=== PATIENT | female | born 1965 | race Caucasian/White ===

== ENCOUNTER 2020-06-12 16:51 | Outpatient (CLI) | payer OTHER, SELFPAY ==
--- NOTE | ~2020-06-12 | MM_ITS ---
EXAMINATION: MM screening [facility] BI w toma HISTORY: Screening mammogram TECHNIQUE: Craniocaudal and mediolateral oblique 3-D tomosynthesis images were obtained and synthetic 2-D images were generated. Bilateral rotated lateral CC views. .CAD analysis was submitted and inter preted. COMPARISON: 05/18/2019, 04/13/2018 bilateral digital screening mammogram examinations BREAST PARENCHYMAL COMPOSITION: The breasts are heterogeneously dense, which may obscure small masses . FINDINGS: Scattered bilateral benign calcifications and stable mild fibroglandular asymmetry. There i s no evidence of suspicious mass, calcification, or architectural distortion to suggest malignancy in either breast. There has been no suspicious interval change. IMPRESSION: 1. No mammographic evidence of malignancy. 2. Recommend routine screening mammography in one year. BI-RADS Category 2: Benign finding(s). Reviewed, dictated and finalized at location A.
== END 2020-06-12 16:52 | disposition home or self-care (01) ==
LOC: ANHIMG 16:54
PROVIDERS: PCP Student in an Organized Health Care Education/Training Program; Visit Provider Student in an Organized Health Care Education/Training Program
DX: Z12.31 Encounter for screening mammogram for malignant neoplasm of breast (principal)
CPT/HCPCS: 77063; 77067

== ENCOUNTER 2021-08-25 16:13 | Outpatient (CLI) | payer OTHER, SELFPAY ==
--- NOTE | ~2021-08-25 | MM_ITS ---
EXAMINATION: MM screening [facility] BI w toma HISTORY: Screening mammogram TECHNIQUE: Craniocaudal and mediolateral oblique 3-D tomosynthesis images were obtained and synthetic 2-D images were generated. CAD analysis was submitted and interpreted. COMPARISON: 06/12/2020, 05/18/2019, 04/13/2018 BREAST PARENCHYMAL COMPOSITION: The breasts are heterogeneously dense, which may obscure small masses . FINDINGS: There is no evidence of suspicious mass, calcification, or architectural distortion to sugg est malignancy in either breast. There has been no suspicious interval change. IMPRESSION: 1. No mammographic evidence of malignancy. 2. Recommend routine screening mammography in one year. BI-RADS Category 1: Negative Reviewed, dictated and finalized at location A. ER OPERATOR
== END 2021-08-25 16:14 | disposition home or self-care (01) ==
LOC: ANHIMG 16:14
PROVIDERS: PCP Physician Assistant; Visit Provider Student in an Organized Health Care Education/Training Program
DX: Z12.31 Encounter for screening mammogram for malignant neoplasm of breast (principal)
CPT/HCPCS: 77063; 77067

== ENCOUNTER → 2022-10-12 15:27 | Outpatient (CLI) | payer OTHER, SELFPAY ==
--- NOTE | ~2022-10-12 | MM_ITS ---
EXAMINATION: MM screening [facility] BI w toma HISTORY: Screening mammogram TECHNIQUE: Craniocaudal and mediolateral oblique 3-D tomosynthesis images were obtained and synthetic 2-D images were generated. CAD analysis was submitted and interpreted. COMPARISON: 08/2021, 06/12/2020, 05/18/2019 bilateral screening mammogram examinations BREAST PARENCHYMAL COMPOSITION: There are FINDINGS: There is no evidence of suspicious mass, calcification, or architectural distortion to sugg est malignancy in either breast. There has been no suspicious interval change. IMPRESSION: 1. No mammographic evidence of malignancy. 2. Recommend routine screening mammography in one year. BI-RADS Category 1: Negative Reviewed, dictated and finalized at location A. UNT GENERAL MANAGER
== END ==
PROVIDERS: PCP Physician Assistant; Visit Provider Student in an Organized Health Care Education/Training Program
DX: Z12.31 Encounter for screening mammogram for malignant neoplasm of breast (principal)
CPT/HCPCS: 77063; 77067

== ENCOUNTER 2023-02-10 10:54 | Outpatient (CLI) | payer OTHER, SELFPAY ==
--- NOTE | 2023-02-10 | ECG_ITS ---
Measurements Intervals [place] Rate: 68 P: 63 WI: 173 QRS: -3 QRSD: 99 T: 34 QT: 374 QTc: 400 Interpretive Statements SINUS RHYTHM NO PREVIOUS ECG AVAILABLE FOR COMPARISON Electronically Signed On 02-10-2023 13:33:37 CDT by Padmini Finney M.D.
== END 2023-02-10 10:55 | disposition home or self-care (01) ==
PROVIDERS: PCP Physician Assistant; Visit Provider Physician Assistant
DX: Z01.818 Encounter for other preprocedural examination (principal)
CPT/HCPCS: 93005

== ENCOUNTER → 2023-09-01 08:52 | Outpatient (CLI) | payer OTHER, SELFPAY ==
--- NOTE | ~2023-09-01 | US_ITS ---
Limited Abdominal Sonogram: Real-time sonographic imaging of the right upper quadrant was performed. Clinical History: Abnormal serum enzyme levels Findings: The liver appears normal with no evidence of mass lesion or bile duct dilatation. Main por erika vein demonstrates normal direction of flow. The gallbladder is absent, compatible prior cholecyst ectomy. The common bile duct measures 4 mm. The visualized pancreas, aorta, and IVC are unremarkable . There is a probable fat-containing focal ventral hernia. Impression: Probable fat-containing ventral hernia. Status post cholecystectomy. Reviewed, dictated and finalized at location . 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 Status post cholecystectomy.
== END ==
PROVIDERS: Visit Provider Physician Assistant
DX: R74.8 Abnormal levels of other serum enzymes (principal); Z90.49 Acquired absence of other specified parts of digestive tract; K43.9 Ventral hernia without obstruction or gangrene
CPT/HCPCS: 76705

== ENCOUNTER 2023-09-09 11:14 | Emergency (ER) | payer OTHER, SELFPAY ==
[2023-09-09 11:33] VITALS: BP 116/84; PULSE 63; RESP 16; TEMP 36.3; O2SAT 100
--- NOTE | 2023-09-09 11:34 | ED.GENADULT ---
HPI - General Adult General Chief complaint: Abdominal Pain Stated complaint: ABD PAIN/KNOT IN STOMACH Time Seen by Provider: 09/09/23 11:35 Source: patient, RN notes reviewed and old records reviewed Mode of arrival: ambulatory Limitations: no limitations History of Present Illness HPI narrative: 58-year-old female presents to the [facility] with abdominal pain and a knot in her stomach Had gastric sleeve in February 2023, ultrasound done last week. Ultrasound showed a Probable fat-containing ventral hernia. Gastric surgery was done at [facility]. Patient reports that the pain is got worse over the last 3 days. States that she tried calling her surgeon's office but they do not see patients on Fridays. States she tried calling her primary care provider's office and she is no longer there. Onset (ago): day(s) (3) Related Data Home Medications Medication Instructions Recorded Confirmed bupropion HCl 300 mg 24 hr tablet, tablet PO 11/09/22 extended release levothyroxine 100 mcg tablet 100 mcg PO DAILY 11/09/22 09/09/23 (Synthroid) sertraline 100 mg tablet 100 mg PO DAILY 11/09/22 09/09/23 Allergies Allergy/AdvReac Type Severity Reaction Status Date / Time No Known Allergies Allergy Verified 09/09/23 11:31 Review of Systems Review of Systems: All systems reviewed & are unremarkable except as noted in HPI and below Constitutional: Constitutional: Reports no additional constitutional complaints Eyes: Eyes: Reports no additional eye complaints ENT: Reports system reviewed and no additional complaints, except as documented Cardiovascular: Cardiovascular: Reports no additional cardiovascular complaints, Denies chest pain and Denies dyspnea Respiratory: Respiratory: Reports no additional respiratory complaints, Denies chest congestion, Denies cough and Denies dyspnea Gastrointestinal: Gastrointestinal: Reports as per HPI, Reports abdominal pain, Reports GI cramping, Denies nausea, Denies vomiting and Reports other (Hernia) Musculoskeletal: Musculoskeletal: Reports no additional musculoskeletal complaints Integumentary/Breasts: Skin/Breast: Reports system reviewed and no additional complaints, except as docu Neurologic: Reports system reviewed and no additional complaints, except as documented Psychiatric: Psychiatric: Reports no additional psychiatric complaints Allergic/Immunologic: Allergic/Immunologic: Reports no additional allergic/immunologic complaints PMFSH Past Medical History Medical History (Updated 09/09/23 @ 11:51 by Yudy Almonte APRN) Anxiety Depression GERD (gastroesophageal reflux disease) Hyperlipidemia Hypothyroid Surgical History Surgical History (Updated 09/09/23 @ 11:48 by Yudy Almonte APRN) H/O gastric sleeve 02/2023 H/O: hysterectomy History of knee replacement Hx of cholecystectomy Hx of tonsillectomy Family History Family History Grandparent Family history of lung cancer Diabetes mellitus Mother Breast cancer Other Family history of alcoholism Family history of arthritis Family history of gout Social History Social History Smoking status: Never smoker Alcohol intake: current Substance use: never Living arrangements: with family Occupation/Education: occupation Gender identity (if verbalized by the patient): Female Sexual Orientation (if Verbalized by the Patient): Straight or Heterosexual Comments At the time of my signature, I reviewed and agree with the nursing past medical, surgical, social, and family history. There is no relevant family history pertinent to the patient complaint. Exam Const: General: cooperative, healthy appearing, comfortable, no acute distress, well developed, alert and well nourished Nutritional Appearance: well nourished Orientation/consciousness: patient oriented x3 Limitations: no limitations RAVEN
== END 2023-09-09 11:47 | disposition short-term general hospital (02) ==
PROVIDERS: Emergency Provider Nurse Practitioner; PCP Physician Assistant
DX: R10.9 Unspecified abdominal pain (principal); K43.9 Ventral hernia without obstruction or gangrene; Z98.84 Bariatric surgery status; K21.9 Gastro-esophageal reflux disease without esophagitis; E78.5 Hyperlipidemia, unspecified; E03.9 Hypothyroidism, unspecified; F41.9 Anxiety disorder, unspecified; F32.A Depression, unspecified
CPT/HCPCS: 99212; G0463

== ENCOUNTER 2023-10-27 11:40 | Outpatient (CLI) | payer OTHER, SELFPAY ==
--- NOTE | ~2023-10-27 | MR_ITS ---
EXAMINATION: MR abdomen wo/w con DATE: 10/27/2023 12:58 INDICATION: Liver disease TECHNIQUE: Magnetic resonance imaging (MRI) of the abdomen was performed without and with 13 mL Multi pernell intravenous contrast. Sequences included coronal T2-weighted SS-FSE, coronal and axial FS 2D-F IESTA, axial STIR FSE, axial T2-weighted SS-FSE, axial T2-weighted FS SS-FSE, axial diffusion-weighte d SE, axial dual-echo T1-weighted FSPGR, and axial and coronal T1-weighted LAVA. Postcontrast axial T 1-weighted LAVA images were obtained in a time course. Postcontrast coronal T1-weighted LAVA images w ere obtained. COMPARISON: None. FINDINGS: Heart size is normal. No pericardial or pleural effusion. The gallbladder is not visualized and there are small foci of susceptibility artifact at the nevin hepatis likely related to cholecystectomy cli ps. Liver is normal with no parenchymal lesions or intrahepatic biliary ductal dilation. Common bile duct measures up to 5 mm in maximal diameter which is normal. Spleen, pancreas, bilateral adrenal gla nds and left kidney are normal. A couple T2 hyperintense nonenhancing cysts at the periphery of the r ight kidney the largest measuring 8mm. Visualized portion of bowels are unremarkable. No pathological ly enlarged abdominal or upper pelvic lymphadenopathy. Mild thoracolumbar dextrocurvature with severe disc height loss with fibrofatty degenerative endplate changes on the right at L3-L4. Otherwise mode rate thoracic and lumbar spondylosis. Postoperative change along the midline of the supraumbilical an terior abdominal wall. There is an underlying 4.3 x 1.6 x 3.6 similar fluid collection underlying the surgical scar which could represent a postoperative hematoma, seroma or abscess in the appropriate c linical setting. IMPRESSION: 1. Status post cholecystectomy. Normal liver with no abnormal intra or extra hepatic biliary ductal d ilation. 2. 4.3 x 3.6 x 1.6 cm loculated fluid collection deep to a midline upper abdominal surgical scar whic h could represent a postoperative hematoma/seroma or abscess in the appropriate clinical setting. Reviewed, dictated and finalized at location A. 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 Status post cholecystectomy. Normal liver with no abnormal intra or extra he patic biliary ductal dilation. 2. 4.3 x 3.6 x 1.6 cm loculated fluid collection deep to a midline upper abdomi nal surgical scar which could represent a postoperative hematoma/seroma or absc ess in the appropriate clinical setting.
== END 2023-10-27 11:41 ==
PROVIDERS: PCP Physician Assistant; Visit Provider Physician Assistant
DX: K76.9 Liver disease, unspecified (principal); Z90.49 Acquired absence of other specified parts of digestive tract
CPT/HCPCS: 74183; A9577

== ENCOUNTER 2023-11-01 16:03 | Outpatient (CLI) | payer OTHER, SELFPAY ==
--- NOTE | ~2023-11-01 | MM_ITS ---
EXAMINATION: MM screening [facility] BI w toma HISTORY: Screening mammogram TECHNIQUE: Craniocaudal and mediolateral oblique 3-D tomosynthesis images were obtained and synthetic 2-D images were generated. CAD analysis was submitted and interpreted. COMPARISON: July 12, 2023, August 25, 2021 bilateral screening mammogram examinations BREAST PARENCHYMAL COMPOSITION: The breasts are heterogeneously dense, which may obscure small masses . FINDINGS: There is no evidence of suspicious mass, calcification, or architectural distortion to sugg est malignancy in either breast. There has been no suspicious interval change. IMPRESSION: 1. No mammographic evidence of malignancy. 2. Recommend routine screening mammography in one year. BI-RADS Category 1: Negative Reviewed, dictated and finalized at location A.
== END 2023-11-01 16:04 ==
LOC: MICIMG 16:05
PROVIDERS: PCP Student in an Organized Health Care Education/Training Program; Visit Provider Student in an Organized Health Care Education/Training Program
DX: Z12.31 Encounter for screening mammogram for malignant neoplasm of breast (principal)
CPT/HCPCS: 77063; 77067

== ENCOUNTER 2024-03-20 09:29 | Day surgery (SDC) | payer OTHER, SELFPAY ==
[2024-02-17 11:57] VITALS: BMI 28.0
[2024-03-07 13:39] VITALS: BMI 27.5
--- NOTE | 2024-03-19 19:40 | PM.HPGS ---
History of Present Illness History of Present Illness Consent: Risks, benefits, and alternatives have been discussed and questions answered. Patient agrees to proceed with procedure. Chief complaint: Neoplasm screening Narrative: Shannan Mcmanus is a 58 year old female who is referred for colon cancer screening. Review of Systems Review of Systems: All systems reviewed & are unremarkable except as noted in HPI and below PMFSH Past Medical History Medical History Anxiety Depression GERD (gastroesophageal reflux disease) Hyperlipidemia Hypothyroid Surgical History Surgical History H/O gastric sleeve 02/2023 H/O: hysterectomy History of knee replacement Hx of cholecystectomy Hx of tonsillectomy Family History Family History Grandparent Family history of lung cancer Diabetes mellitus Mother Breast cancer Other Family history of alcoholism Family history of arthritis Family history of gout Social History Social History Smoking status: Never smoker Alcohol intake: current Drinks per week: 6 Alcohol use details: wine Substance use: never Substance use type: does not use Do You Feel Safe in your Home?: Yes Lack of Transportation: No Lack of Food: Never True Current Housing: I Have Housing Concerned About Future Housing: No Difficulty Paying Gas/Electric Bills: No Difficulty Paying for Meds: No Currently Unemployed: No Education: Master's Degree or Higher Difficulty w/ Childcare or Family Care: No Living arrangements: with family Occupation/Education: occupation Gender identity (if verbalized by the patient): Female Sexual Orientation (if Verbalized by the Patient): Straight or Heterosexual Spiritual care concerns: No Meds Home Medications and Allergies Home Medications Medication Instructions Recorded Confirmed Type levothyroxine 100 mcg tablet 100 mcg PO DAILY 11/09/22 03/20/24 History (Synthroid) estradiol 0.01% (0.1 mg/gram) 1 g vaginal 3XW #42.5 grams 11/23/23 03/07/24 Rx vaginal cream calcium 500 mg tablet 500 mg PO DAILY 03/07/24 03/20/24 History mecobalamin (vitamin B12) 5,000 5,000 mcg PO DAILY 03/07/24 03/20/24 History mcg chewable tablet multivitamin with minerals-folic 1 tablet PO DAILY 03/07/24 03/20/24 History acid 0.4 mg tablet Allergies Allergy/AdvReac Type Severity Reaction Status Date / Time No Known Allergies Allergy Verified 03/20/24 10:42 Exam Resp: Auscultation: clear to auscultation bilaterally Cardio: Rate: regular rate Rhythm: regular rhythm GI: GI Palp: Yes Soft to palpation and No Tenderness to palpation present (GI) Assessment and Plan Assessment and plan (1) Colon cancer screening: Code(s): Z12.11 - Encounter for screening for malignant neoplasm of colon Status: Acute Assessment and Plan: Colonoscopy with possible biopsy or polypectomy or cautery or injection of substances.
[2024-03-20] MEDS: LACTATED RINGERS 1,000 ML 150 ML IV CONT (11:01)
[2024-03-20 11:02] VITALS: BP 108/79; PULSE 62; RESP 18; TEMP 36.7; O2SAT 100; BMI 27.5
--- NOTE | 2024-03-20 11:06 | WPDANESEPPF ---
Anes - Initial Pre Proc Eval Procedure: Operation Date: 03/20/24 12:00 Proposed Procedures p Screening Colonoscopy - Farooq Castañeda MD Date/Time: 03/20/24 11:06 Surgeon: Farooq Castañeda MD Pre Op Diagnosis: Neoplasm screening Patient Data Age: 58 Gender: F Height: 1.6 m Weight: 70.5 kg Last Vital Signs Temp 36.7 C 03/20/24 11:02 Pulse 62 03/20/24 11:02 Resp 18 03/20/24 11:02 BP 108/79 03/20/24 11:02 Pulse Ox 100 03/20/24 11:02 O2 Del Method Room Air 03/20/24 11:02 Allergies Allergy/AdvReac Type Severity Reaction Status Date / Time No Known Allergies Allergy Verified 03/20/24 10:42 Home Medications Medication Instructions Recorded Confirmed Type levothyroxine 100 mcg tablet 100 mcg PO DAILY 11/09/22 03/20/24 History (Synthroid) estradiol 0.01% (0.1 mg/gram) 1 g vaginal 3XW #42.5 grams 11/23/23 03/07/24 Rx vaginal cream calcium 500 mg tablet 500 mg PO DAILY 03/07/24 03/20/24 History mecobalamin (vitamin B12) 5,000 5,000 mcg PO DAILY 03/07/24 03/20/24 History mcg chewable tablet multivitamin with minerals-folic 1 tablet PO DAILY 03/07/24 03/20/24 History acid 0.4 mg tablet Patient hx anesthesia problems: none Family hx anesthesia problems: none Results Review: All pre-operative results and documents have been reviewed as part of the pre-operative evaluation. [facility] Past Medical History Medical History Anxiety Depression GERD (gastroesophageal reflux disease) Hyperlipidemia Hypothyroid Surgical History Surgical History H/O gastric sleeve 02/2023 H/O: hysterectomy History of knee replacement Hx of cholecystectomy Hx of tonsillectomy Family History Family History Grandparent Family history of lung cancer Diabetes mellitus Mother Breast cancer Other Family history of alcoholism Family history of arthritis Family history of gout Social History Social History Smoking status: Never smoker Alcohol intake: current Drinks per week: 6 Alcohol use details: wine Substance use: never Substance use type: does not use Do You Feel Safe in your Home?: Yes Lack of Transportation: No Lack of Food: Never True Current Housing: I Have Housing Concerned About Future Housing: No Difficulty Paying Gas/Electric Bills: No Difficulty Paying for Meds: No Currently Unemployed: No Education: Master's Degree or Higher Difficulty w/ Childcare or Family Care: No Living arrangements: with family Occupation/Education: occupation Gender identity (if verbalized by the patient): Female Sexual Orientation (if Verbalized by the Patient): Straight or Heterosexual Spiritual care concerns: No Anes - Eval Final PreProcedure Day of Procedure 03/20/24 11:06 Patient weight: overweight Heart: regular rate and rhythm Lungs: clear to auscultation Airway: Mallampati scale class II Neurological: alert and oriented Last oral intake: >/= 8 hours ASA classification: II Emergent: no Anesthetic plan: proceed Anesthesia type and monitoring: general GIVS and standard monitoring Results Review: All pre-operative results and documents have been reviewed as part of the pre-operative evaluation. Informed Consent: The patient's anesthetic plan and its attendant risks and benefits were discussed with the patient/family/POA. Questions were solicited and answers provided to the satisfaction of the patient/family/POA.
[2024-03-20 11:45] VITALS: BP 108/79; PULSE 62; RESP 18; O2SAT 100
[2024-03-20 11:55] VITALS: BP 91/63; PULSE 62; RESP 18; O2SAT 100
--- NOTE | 2024-03-20 12:02 | WPDANESPN ---
Anes - Prog Note Post-Op Date/Time: 03/20/24 12:02 Cardiovascular status: normal Respiratory status: normal Airway patency: baseline Mental status: baseline Post-Op hydration status: normal Vital Signs: Last Vital Signs Temp 36.7 C 03/20/24 11:02 Pulse 62 03/20/24 11:55 Resp 18 03/20/24 11:55 BP 91/63 L 03/20/24 11:55 Pulse Ox 100 03/20/24 11:55 O2 Del Method Room Air 03/20/24 11:55 Pain Score (VAS): 0/10 I/O: Intake & Output 03/19/24 03/20/24 03/20/24 23:59 07:59 15:59 Intake Total 400 Balance 400 Patient Feedback: Patient satisfied with anesthetic care.
[2024-03-20 12:05] VITALS: BP 121/71; PULSE 68; RESP 20; O2SAT 100
== END 2024-03-20 12:20 | disposition home or self-care (01) ==
PROVIDERS: PCP Physician Assistant; Visit Provider Internal Medicine Gastroenterology
PROC: 0DJD8ZZ Inspection of Lower Intestinal Tract, Via Natural or Artificial Opening Endoscopic (ICD-10-PCS; CPT 45378; principal; 2024-03-20 12:00)
DX: Z12.11 Encounter for screening for malignant neoplasm of colon (principal)
CPT/HCPCS: 45378

== ENCOUNTER 2024-04-19 08:38 | Outpatient (CLI) | payer OTHER, SELFPAY ==
--- NOTE | 2024-05-15 10:29 | WPDHOMESLEEP ---
Sleep Study - Home Unattended Date of Study: 04/19/24 Ordering Provider: Tomeka Rabago, PAJose L Interpreting Provider: Tonja Briceño, Home Sleep Study Type: Watch PAT Height: 1.6 m Weight: 70.307 kg Body Mass Index: 27.4 Neck Circumference (inches): 13 Calvin: 5 Reason for Sleep Study Re-evaluation of BRAYAN after significant weight loss Sleep History The patient is a 58-year-old female with previously diagnosed sleep apnea that had a home sleep test ordered by her primary care for re-evaluation of sleep apnea after significant weight loss. The patient does admit to having difficulty falling asleep. She denies snoring. She denies having witnessed apneas during the night. She denies having choking or gasping spells during the night. She denies having trouble breathing on her back. She denies waking up with headaches that she did not go to bed with. She does have a dry mouth or throat in the morning. She denies nocturnal heartburn. She denies nocturia. She denies clenching her grinding her teeth. She denies kicking or jerking her legs excessively. She denies having trouble remaining asleep. She denies having difficulty returning to sleep. She denies waking up early without an alarm. She denies taking any hypnotics her sedatives. She does have anxiety about sleep. She does admit to feeling tired in the morning. She does admit to on refreshing sleep. She denies having the urge to fall asleep during the day. She denies feeling drowsy while driving. She goes to bed at 10:30 p.m. on work days and at 11:30 p.m. on her days off. It takes her 30 minutes to fall asleep. She sleeps 6 hours 15 minutes on work days and 8 hours on her off days. She does not take any planned naps. She states that her sleep is restorative on her days off. She consumes 1-2 cups of caffeinated beverage per day. She consumes 1 glass of an alcoholic beverage 3-4 nights per week. She exercises 1-2 nights per week. She denies smoking cigarettes. She denies having a rotating shift schedule at work. [facility] Past Medical History Medical History Anxiety Depression GERD (gastroesophageal reflux disease) Hyperlipidemia Hypothyroid Surgical History Surgical History H/O gastric sleeve 02/2023 H/O: hysterectomy History of knee replacement Hx of cholecystectomy Hx of tonsillectomy Family History Family History Grandparent Family history of lung cancer Diabetes mellitus Mother Breast cancer Other Family history of alcoholism Family history of arthritis Family history of gout Social History Social History Smoking status: Never smoker Alcohol intake: current Drinks per week: 6 Alcohol use details: wine Substance use: never Substance use type: does not use Do You Feel Safe in your Home?: Yes Lack of Transportation: No Lack of Food: Never True Current Housing: I Have Housing Concerned About Future Housing: No Difficulty Paying Gas/Electric Bills: No Difficulty Paying for Meds: No Currently Unemployed: No Education: Master's Degree or Higher Difficulty w/ Childcare or Family Care: No Living arrangements: with family Occupation/Education: occupation Gender identity (if verbalized by the patient): Female Sexual Orientation (if Verbalized by the Patient): Straight or Heterosexual Spiritual care concerns: No Medications Home Medications Medication Instructions Recorded Confirmed Type levothyroxine 100 mcg tablet 100 mcg PO DAILY 11/09/22 03/20/24 History (Synthroid) estradiol 0.01% (0.1 mg/gram) 1 g vaginal 3XW #42.5 grams 11/23/23 03/07/24 Rx vaginal cream calcium 500 mg tablet 500 mg PO DAILY 03/07/24 03/20/24 History mecobalamin (vitamin B12) 5,00
[2024-05-15 10:30] VITALS: BMI 27.4
== END 2024-05-08 12:16 | disposition home or self-care (01) ==
PROVIDERS: PCP Physician Assistant; Visit Provider Physician Assistant
DX: G47.33 Obstructive sleep apnea (adult) (pediatric) (principal); R06.83 Snoring
CPT/HCPCS: 95800

== ENCOUNTER 2024-11-07 15:00 | Outpatient (CLI) | payer OTHER, SELFPAY ==
--- NOTE | ~2024-11-07 | MM_ITS ---
EXAMINATION: MM screening [facility] BI w toma HISTORY: Screening TECHNIQUE: Craniocaudal and mediolateral oblique 3-D tomosynthesis images were obtained and synthetic 2-D images were generated. CAD analysis was submitted and interpreted. COMPARISON: Comparison to multiple prior studies sequentially, with oldest reviewed study dated 04/13. BREAST PARENCHYMAL COMPOSITION: Dense: The breasts are heterogeneously dense, which may obscure small masses FINDINGS: There is no evidence of suspicious mass, calcification, or architectural distortion to sugg est malignancy in either breast. There has been no suspicious interval change. IMPRESSION: 1. No mammographic evidence of malignancy. 2. Recommend routine screening mammography in one year. BI-RADS Category 1: Negative Reviewed, dictated and finalized at location B.
== END 2024-11-07 15:01 | disposition home or self-care (01) ==
PROVIDERS: PCP Physician Assistant; Visit Provider Student in an Organized Health Care Education/Training Program
DX: Z12.31 Encounter for screening mammogram for malignant neoplasm of breast (principal)
CPT/HCPCS: 77063; 77067

== ENCOUNTER 2025-06-19 08:41 | Outpatient (CLI) | payer OTHER, SELFPAY ==
--- NOTE | ~2025-06-19 | XR_ITS ---
Clinical history:Bilateral temporomandibular joint pain. Jaw locks randomly EXAM:X-ray TMJ bilateral TECHNIQUE:4 images were obtained. Comparisons:None available FINDINGS: No radiographic evidence for a fracture of the mandible. Closed mouth views, the bilateral mandibular condyles are within the temporomandibular joints. Open-mouth views, there is borderline dislocation of the bilateral mandibular condyles from the temporomandibular joints. IMPRESSION: 1. Closed mouth views, the bilateral mandibular condyles are within the temporomandibular joints. 2. Open-mouth views, there is borderline dislocation of the bilateral mandibular condyles from the temporomandibular joints. If symptoms persist or worsen, consider a short-term follow-up study or additional imaging for further assessment. Reviewed, dictated and finalized at location Q. IMPRESSION: 1. Closed mouth views, the bilateral mandibular condyles are within the temporo mandibular joints. 2. Open-mouth views, there is borderline dislocation of the bilateral mandibula r condyles from the temporomandibular joints. If symptoms persist or worsen, consider a short-term follow-up study or additio nal imaging for further assessment.
== END 2025-06-19 08:42 | disposition home or self-care (01) ==
LOC: MICIMG 08:43
PROVIDERS: PCP Physician Assistant; Visit Provider Physician Assistant
DX: M26.623 Arthralgia of bilateral temporomandibular joint (principal)
CPT/HCPCS: 70330